=== PATIENT | male | born 1940 | race African-American/Black ===

== ENCOUNTER 2019-01-22 01:48 | Inpatient (IN) | payer MEDICARE, OTHER ==
[~2019-01-22] VITALS: Ht 175.3 cm; Wt 52.1 kg
[2019-01-22] VITALS (9 sets, daily range): BP systolic 112–127; BP diastolic 52–76; PULSE 68–141; RESP 16–18; Ht 175.3 cm; Wt 52.1 kg
[~2019-01-22 01:48] MED LIST: [UNRECOGNIZED DRUG - REMARK]
--- NOTE | 2019-01-22 02:11 | ERD ---
ER Documentation Chief Complaint Chief Complaint HPI 78-year-old male brought in by EMS from home for decreased mental status after h is first night of using trazodone to help him sleep. Patient has had recent insomnia but also has a history of recent lung carcinoma and began chemotherapy about 2 weeks ago. Patient has multiple medical conditions including lung cancer with effusion and recent Pleurx catheter placement, bedbound state, end- stage kidney disease hemodialysis dependent Fridays. Patient has had multiple recent admissions to different hospitals and is constantly being discharged but his cannot take care of him at home any longer. The HPI was supplemented by daughter who was at the bedside states his can no longer take care of him. He has had trouble sleeping recently and was presc ribed trazodone and it was his first night using it and family became worried because of his diminished mental status. He has had no fevers, no vomiting, no complaints of chest pain. ROS All systems reviewed and are negative except as per history of present illness. Medications Home Meds Reported Medications [Med Lists Not ] No Conflict Check 04/29/11 Allergies Allergies: Coded Allergies: No Known Drug Allergy (Verified Allergy, Unknown, 05/05/11) PMhx/Soc End-stage kidney disease hemodialysis dependent, atrial fibrillation, portacatheter to the right chest, Pleurx catheter to the right lateral chest, recent right shoulder chip fracture from fall, bedbound state, COPD, CHF, lung carcinoma, hypertension, history of bilateral pulmonary embolisms, DVT, inferior vena cava filter, gout, hypothyroidism, anemia, depression, history of [place], GERD, history of GI bleed History of Surgery: No Anesthesia Reaction: No Hx Neurological Disorder: No Hx Respiratory Disorders: No Hx Cardiac Disorders: Yes (HTN, HYPERLIPIDEMIA) Hx Psychiatric Problems: No Hx Miscellaneous Medical Probl: Yes (4 year h/o dialysis, CHF, Pulmonary edema, Renal failure,atrial fib) FmHx Family History: No diabetes Physical Exam Vitals Vital Signs Date Temp Pulse Resp B/P (MAP) Pulse Ox O2 O2 Flow FiO2 Time Delivery Rate 01/22/19 96 25 100 02:11 Per nurse's records Physical Exam Const: No acute distress, afebrile HEENT: Dry mucous membranes, pupils equal and reactive Resp: Diminished breath sounds bilaterally Cardio: Regular rate and rhythm, no murmurs Abd: Soft, non tender, non distended. Skin: No petechiae or rashes, no lacerations or abrasions noted Back: No midline or flank tenderness Ext: No cyanosis, or edema Neur: Eyes closed, ANO x1, able to answer simple questions, patient has upper and lower extremity contractures Psych: Depressed affect Result Diagram: 01/22/19 0341 01/22/19 0341 Results 24 hrs Laboratory Tests Test 01/22/19 03:41 White Blood Count 7.4 10^3/ul Red Blood Count 2.65 10^6/ul Hemoglobin 8.7 g/dl Hematocrit 27.5 % Mean Corpuscular Volume 103.8 fl Mean Corpuscular Hemoglobin 32.8 pg Mean Corpuscular Hemoglobin Concent 31.6 g/dl Red Cell Distribution Width 18.0 % Platelet Count 182 10^3/UL Mean Platelet Volume 10.0 fl Immature Granulocytes % 0.400 % Neutrophils % 68.9 % Lymphocytes % 16.4 % Monocytes % 13.2 % Eosinophils % 0.4 % Basophils % 0.7 % Nucleated Red Blood Cells % 0.0 /100WBC Immature Granulocytes # 0.030 10^3/ul Neutrophils # 5.1 10^3/ul Lymphocytes # 1.2 10^3/ul Monocytes # 1.0 10^3/ul Eosinophils # 0.0 10^3/ul Basophils # 0.1 10^3/ul Nucleated Red Blood Cells # 0.0 10^3/ul Sodium Level 140 mmol/L Potassium Level 4.1 mmol/L Chloride Level 97 mmol/L Carbon Dioxide Level 31 mmol/L Anion Gap 12 Blood Urea Nitrogen 31 mg/dl Creatinine 5.59 mg/dl Est Glomerular Filtrat Rate mL/min mL/min Glucose Level 127 mg/dl Calcium Level 8.7 mg/dl Total Bilirubin 0.2 mg/dl Direct Bilirubin 0.00 mg/dl Indirect Bilirubin 0.2 mg/dl Aspartate Amino Transf (AST/SGOT) 23 IU/L Alanine Aminotransferase (ALT/SGPT) 17 IU/L Alkaline Phosphatase 133 IU/L Troponin I Pending Total Protein 6.6 g/dl Albumin 3.0 g/dl Globulin 3.60 g/dl Albumin/Globulin Ratio 0.83 Lipase 62 U/L Current Medications Medications Dose Sig/Antonio Start Time Status Last (Trade) Ordered Route PRN Stop Time Admin Dose Reason Admin 1 mg ONCE STAT 01/22/19 DC 01/22/19 Hydromorphone IM 03:00 03:01 HCl 01/22/19 03:01 (Dilaudid) Diltiazem 20 mg ONCE ONCE 01/22/19 DC 01/22/19 HCl IV 04:00 03:47 (Cardizem Iv) 01/22/19 04:01 Procedures/MDM IV line was established patient was placed on monitoring and evaluation advisor rhythm strip revealed a narrow complex tachycardia at 110 bpm with upright P and T waves. Patient was afebrile EKG performed, read by me revealed a atrial fibrillation with rapid ventricular rate at 101 bpm, left axis deviation, narrow QRS complex no concerning ST elevations or depressions noted 1 view chest x-ray performed, read by me there is a catheter in the right chest and complete opacification of the left hemithorax consistent with effusion and lung carcinoma For pain control administered hydromorphone 1 mg IM x1. Patient had an episode of atrial fibrillation at a rate of 160 bpm, I immediately administered diltiazem 20 mg IV x1. EKG after diltiazem therapy revealed an atrial fibrillation rate controlled at 98 bpm, normal axis, narrow QRS complex, no concerning ST elevations or depressions noted CBC reveals anemia with a hemoglobin of 8.7, electrolytes reveal end-stage kidney disease, liver function tests normal, troponin negative Critical Care: Time: 40 minutes, this was time separate from other billable procedures. Treatments/Evaluations: Close monitoring and treatment of unstable vital signs, cardiorespiratory, and neurologic status, while maintaining tight balance of fluid, respiratory, and cardiac interventions. Patient will be admitted to telemetry setting for trazodone overdose and atrial fibrillation with rapid ventricular rate. He will also require inpatient hemodialysis and eventual placement possibly to a snf facility. Departure Diagnosis: Primary Impression: Acute encephalopathy Additional Impressions: Lung cancer Laterality: unspecified laterality Lung location: unspecified part of lung Qualified Codes: C34.90 - Malignant neoplasm of unspecified part of unspecified bronchus or lung End stage kidney disease Overdose Encounter type: initial encounter Injury intent: accidental or unintentional Qualified Codes: T50.901A - Poisoning by unspecified drugs, medicaments and biological substances, accidental (unintentional), initial encounter Atrial fibrillation with RVR Anemia Anemia type: unspecified type Qualified Codes: D64.9 - Anemia, unspecified Condition: HOSSEIN Dunaway MD Jan 22, 2019 02:11
[2019-01-22] MEDS ORDERED: HYDROmorphONE 2 MG/ML SYG IM STA (03:00)
[2019-01-22] MEDS ORDERED: DILTIAZEM 25 MG INJ IV ONE (04:00)
[2019-01-22] MEDS ORDERED: DEXTROSE 5%-0.45% NACL 1,000 ML IV SCH (04:48)
--- NOTE | 2019-01-22 04:48 | HP ---
Date/Time of Note Date/Time of Note DATE: 01/22/19 TIME: 04:40 Assessment/Plan VTE Prophylaxis Pharmacological prophylaxis: heparin Lines/Catheters IV Catheter Type (from Nrsg): portacath Assessment/Plan Assessment/Plan 1. 78-year-old male with a history of hypertension, ESRD on HD, bilateral PE status post IVC filter, COPD, GERD, hypothyroidism, recently diagnosed lung cancer on chemo. 1. Altered mentation, bedbound/unable to care for self -Patient with multiple medical condition. Family unable to care for patient. -physician relations manager for placement -need palliative care, hospice discussion 2. Recently diagnosed lung cancer on chemo -talk to family and decide about Oncology consult 3. Atrial fibrillation with RVR: Status post diltiazem ER, currently rate controlled 4. History of bilateral PE: Status post IVC filter 5. ESRD on HD: Nephrology for dialysis 6. History of COPD: Supplemental oxygen, bronchodilators and steroid as needed 7. Hypothyroidism: Continue Synthroid 8. Hypertension: Adjust antihypertensive as needed 9. Normocytic anemia: Likely from chronic disease and the chemo induced -Check FOBT and iron/ferritin to workup for GI bleed and iron deficiency -Transfuse PRBCs as needed Result Diagram: 01/22/19 0341 01/22/19 0341 Results 24hrs Laboratory Tests Test 01/22/19 03:41 White Blood Count 7.4 Red Blood Count 2.65 L Hemoglobin 8.7 L Hematocrit 27.5 L Mean Corpuscular Volume 103.8 H Mean Corpuscular Hemoglobin 32.8 Mean Corpuscular Hemoglobin Concent 31.6 L Red Cell Distribution Width 18.0 H Platelet Count 182 Mean Platelet Volume 10.0 Immature Granulocytes % 0.400 Neutrophils % 68.9 Lymphocytes % 16.4 Monocytes % 13.2 H Eosinophils % 0.4 Basophils % 0.7 Nucleated Red Blood Cells % 0.0 Immature Granulocytes # 0.030 Neutrophils # 5.1 Lymphocytes # 1.2 Monocytes # 1.0 H Eosinophils # 0.0 Basophils # 0.1 Nucleated Red Blood Cells # 0.0 Sodium Level 140 Potassium Level 4.1 Chloride Level 97 Carbon Dioxide Level 31 Anion Gap 12 Blood Urea Nitrogen 31 H Creatinine 5.59 H Est Glomerular Filtrat Rate mL/min Glucose Level 127 Calcium Level 8.7 Total Bilirubin 0.2 Direct Bilirubin 0.00 Indirect Bilirubin 0.2 Aspartate Amino Transf (AST/SGOT) 23 Alanine Aminotransferase (ALT/SGPT) 17 Alkaline Phosphatase 133 H Troponin I 0.056 Total Protein 6.6 Albumin 3.0 L Globulin 3.60 H Albumin/Globulin Ratio 0.83 Lipase 62 HPI/ROS Admit Date/Time Admit Date/Time Hx of Present Illness This is a 78-year-old male with a history of hypertension, ESRD on HD, bilateral PE status post IVC filter, COPD, GERD, hypothyroidism, recently diagnosed lung cancer on chemo. Patient was discharged from [facility] yesterday after he was admitted for right shoulder status post fall. stated that she is unable to care for him as he has been confused, anxious, attempting to pull out his Pleurx (had recently been replaced for dislodgment). Patient was also given trazodone for a sleep that seems to make him more confused. Family requesting placement. PMH/Family/Social Past Medical History Past Surgical History Past Surgical Hx: other (see hpi) Family History Significant Family History: no pertinent family hx Social History Alcohol Use: other Smoking Status: Unknown if ever smoked Drug Use: other Exam Constitutional: other (no acute distress) Eyes: PERRL ENMT: nl external ears & nose Neck: supple Respiratory: normal air movement Cardiovascular: nl pulses Gastrointestinal: soft Extremities: normal pulses Coded Allergies: No Known Drug Allergy (Verified Allergy, Unknown, 05/05/11) Social History Smoking Status: Never smoker Exam/Review of Systems Vital Signs Vitals Vital Signs Date Temp Pulse Resp B/P (MAP) Pulse Ox O2 O2 Flow FiO2 Time Delivery Rate 01/22/19 96 25 100 02:11 Exam Constitutional: other (non-verbal, cachectic) Head: normocephalic, atraumatic Cardiovascular: irregular rhythm Gastrointestinal: soft Musculoskeletal: other (muscle wasting) Neurological: other (non-verbal (not answering questions)) ANKIT BRIZUELA MD Jan 22, 2019 04:48
[2019-01-22] MEDS ORDERED: ONDANSETRON 4 MG INJ IV PRN (05:00)
[2019-01-22] MEDS ORDERED: NACL 0.9% 3 ML SYG IV SCH (05:00)
[2019-01-22] MEDS: morphine 2 MG INJ IV PRN ×2 (08:44→14:30)
--- NOTE | 2019-01-22 10:52 | CONS ---
Assessment/Plan Assessment/Plan Hospital Course (Demo Recall) This is a 78-year-old male with a history of hypertension, ESRD on HD, bilateral PE status post IVC filter, COPD, GERD, hypothyroidism, recently diagnosed lung cancer on chemo. Patient was recently discharged from [facility] after he was admitted for right shoulder status post fall. Family is unable to care for him as he has been confused, anxious, attempting to pull out his Pleurx (had re cently been replaced for dislodgment). Patient was also given trazodone for a sleep that seems to make him more confused. He has a functioning L upper arm AVF. not clear when his last hd was. no fever, chills, new rash, melena, chest pain or dyspnea cxr reviewed ROS All systems reviewed and are negative except as per history of present illness. Allergies Allergies: Coded Allergies: No Known Drug Allergy (Verified Allergy, Unknown, 05/05/11) PMhx/Soc End-stage kidney disease hemodialysis dependent, atrial fibrillation, portacatheter to the right chest, Pleurx catheter to the right lateral chest, recent right shoulder chip fracture from fall, bedbound state, COPD, CHF, lung carcinoma, hypertension, history of bilateral pulmonary embolisms, DVT, inferior vena cava filter, gout, hypothyroidism, anemia, depression, history of [place], GERD, history of GI bleed History of Surgery: No Anesthesia Reaction: No Hx Neurological Disorder: No Hx Respiratory Disorders: No Hx Cardiac Disorders: Yes (HTN, HYPERLIPIDEMIA) Hx Psychiatric Problems: No Hx Miscellaneous Medical Probl: Yes (4 year h/o dialysis, CHF, Pulmonary edema, Renal failure,atrial fib) FmHx Family History: No renal diseases social history: no current alcohol or tobacco Physical Exam Const: No acute distress, afebrile HEENT: Dry mucous membranes, pupils equal and reactive Resp: Diminished breath sounds bilaterally Cardio: Regular rate and rhythm, no murmurs Abd: Soft, non tender, non distended. Skin: No petechiae or rashes, no lacerations or abrasions noted Back: No midline or flank tenderness Ext: No cyanosis, or edema Neur: Eyes closed, ANO x1, able to answer simple questions, patient has upper and lower extremity contractures Psych: Depressed affect 1. 78-year-old male with a history of hypertension, ESRD on HD, bilateral PE status post IVC filter, COPD, GERD, hypothyroidism, recently diagnosed lung cancer on chemo. 1. ESRD: no indication for acute HD. will re-evaluate in am. 2. Recently diagnosed lung cancer on chemo -cxr shows opacification of left hemithorax. ? hospice 3. Atrial fibrillation with RVR: Status post diltiazem ER, currently rate controlled 4. History of bilateral PE: Status post IVC filter 5. Altered mentation, 6. History of COPD: Supplemental oxygen, bronchodilators and steroid as needed 7. Hypothyroidism: Continue Synthroid 8. Hypertension: Adjust antihypertensive as needed 9. Normocytic anemia: Likely from chronic disease and the chemo induced -Check FOBT and iron/ferritin to workup for GI bleed and iron deficiency -Transfuse PRBCs as needed Consultation Date/Type/Reason Admit Date/Time Date/Time of Note DATE: 01/22/19 TIME: 10:46 Past Medical History Home Meds Reported Medications [Med Lists Not ] No Conflict Check 04/29/11 Medications Current Medications IV Flush (NS 3 ml) 3 ml PER PROTOCOL IV ; Start 01/22/19 at 05:00 Ondansetron HCl (Zofran Inj) 4 mg Q6H PRN IV NAUSEA/VOMITING; Start 01/22/19 at 05:00 Morphine Sulfate (morphine) 2 mg Q4H PRN IV .PAIN 7-10 Last administered on 01/22/19at 08:44; Admin Dose 2 MG; Start 01/22/19 at 05:00 Allergies: Coded Allergies: No Known Drug Allergy (Verified Allergy, Unknown, 05/05/11) Social History Smoking Status: Former smoker Exam/Review of Systems Exam Vitals Vital Signs Date Temp Pulse Resp B/P (MAP) Pulse Ox O2 O2 Flow FiO2 Time Delivery Rate 01/22/19 141 08:06 01/22/19 Nasal 2.0 05:35 Cannula 01/22/19 99.5 18 119/56 100 05:26 (77) Results Result Diagram: 01/22/19 0341 01/22/19 0341 Results 24hrs Laboratory Tests Test 01/22/19 03:41 White Blood Count 7.4 Red Blood Count 2.65 L Hemoglobin 8.7 L Hematocrit 27.5 L Mean Corpuscular Volume 103.8 H Mean Corpuscular Hemoglobin 32.8 Mean Corpuscular Hemoglobin Concent 31.6 L Red Cell Distribution Width 18.0 H Platelet Count 182 Mean Platelet Volume 10.0 Immature Granulocytes % 0.400 Neutrophils % 68.9 Lymphocytes % 16.4 Monocytes % 13.2 H Eosinophils % 0.4 Basophils % 0.7 Nucleated Red Blood Cells % 0.0 Immature Granulocytes # 0.030 Neutrophils # 5.1 Lymphocytes # 1.2 Monocytes # 1.0 H Eosinophils # 0.0 Basophils # 0.1 Nucleated Red Blood Cells # 0.0 Sodium Level 140 Potassium Level 4.1 Chloride Level 97 Carbon Dioxide Level 31 Anion Gap 12 Blood Urea Nitrogen 31 H Creatinine 5.59 H Est Glomerular Filtrat Rate mL/min Glucose Level 127 Calcium Level 8.7 Total Bilirubin 0.2 Direct Bilirubin 0.00 Indirect Bilirubin 0.2 Aspartate Amino Transf (AST/SGOT) 23 Alanine Aminotransferase (ALT/SGPT) 17 Alkaline Phosphatase 133 H Troponin I 0.056 Total Protein 6.6 Albumin 3.0 L Globulin 3.60 H Albumin/Globulin Ratio 0.83 Lipase 62 Medications Medication Current Medications IV Flush (NS 3 ml) 3 ml PER PROTOCOL IV ; Start 01/22/19 at 05:00 Ondansetron HCl (Zofran Inj) 4 mg Q6H PRN IV NAUSEA/VOMITING; Start 01/22/19 at 05:00 Morphine Sulfate (morphine) 2 mg Q4H PRN IV .PAIN 7-10 Last administered on 01/22/19at 08:44; Admin Dose 2 MG; Start 01/22/19 at 05:00 STANISLAV CALERO DO Jan 22, 2019 10:52
[2019-01-22] MEDS ORDERED: ENOXAPARIN 100 MG/ML SYG SC SCH ×2 (11:30→12:00)
[2019-01-22] MEDS ORDERED: IPRATROPIUM (NEB) 0.5 MG/2.5 ML AMP HHN PRN (11:30)
[2019-01-22] MEDS: DILTIAZEM 30 MG TAB PO SCH ×2 (12:30→12:35)
--- NOTE | 2019-01-22 15:31 | CONS ---
Assessment/Plan Assessment/Plan Hospital Course (Demo Recall) Assessment: Atrial fibrillation, likely chronic - rapid ventricular rates Hypertension Lung cancer - recent diagnosis and undergoing chemotherapy, has right PleurX catheter, complete opacification of the left hemithorax on chest x-ray End-stage renal disease, on hemodialysis Chronic obstructive pulmonary disease History of bilateral pulmonary embolism, status post IVC filter placement Anemia Recommendations: -increase diltiazem to 60mg PO Q6hr -not a good candidate for anticoagulation -change Lovenox from therapeutic to prophylactic dosing Consultation Date/Type/Reason Admit Date/Time Type of Consult Cardiology Reason for Consultation atrial fibrillation with rapid ventricular response Date/Time of Note DATE: 01/22/19 TIME: 15:23 Hx of Present Illness The patient is a 78 year-old male who presented with confusion and agitation. He is alert and oriented to person only, and is a limited historian. He apparently has a history of atrial fibrillation and has been noted to be in atrial fibrillation with a rapid ventricular response. He was recently diagnosed with lung cancer, and has a right PleurX catheter in place and undergoing chemotherapy. Unable to obtain review of systems due to patient's mental status. Past Medical History Atrial fibrillation Hypertension Lung cancer End-stage renal disease, on hemodialysis Chronic obstructive pulmonary disease History of bilateral pulmonary embolism, status post IVC filter placement Home Meds Reported Medications [Med Lists Not ] No Conflict Check 04/29/11 Medications Current Medications IV Flush (NS 3 ml) 3 ml PER PROTOCOL IV ; Start 01/22/19 at 05:00 Ondansetron HCl (Zofran Inj) 4 mg Q6H PRN IV NAUSEA/VOMITING; Start 01/22/19 at 05:00 Morphine Sulfate (morphine) 2 mg Q4H PRN IV .PAIN 7-10 Last administered on 01/22/19at 14:30; Admin Dose 2 MG; Start 01/22/19 at 05:00 Diltiazem HCl (Cardizem) 30 mg QID PO Last administered on 01/22/19at 12:30; Admin Dose 30 MG; Start 01/22/19 at 11:30 Ipratropium [place] (Atrovent 0.02% (Neb)) 0.5 mg Q4H RESP THERAPY PRN HHN SHORTNESS OF BREATH; Start 01/22/19 at 11:30 Famotidine (Pepcid) 20 mg DAILY PO ; Start 01/23/19 at 09:00 Enoxaparin Sodium (Lovenox) 50 mg Q24H SC Last administered on 01/22/19at 12:10; Admin Dose 50 MG; Start 01/22/19 at 12:00 Allergies: Coded Allergies: No Known Drug Allergy (Verified Allergy, Unknown, 05/05/11) Family History Significant Family History: no pertinent family hx Social History Smoking Status: Former smoker Exam/Review of Systems Vital Signs Vitals Vital Signs Date Temp Pulse Resp B/P (MAP) Pulse Ox O2 O2 Flow FiO2 Time Delivery Rate 01/22/19 92 12:09 01/22/19 98.6 16 112/62 100 11:44 (79) 01/22/19 Nasal 2.0 05:35 Cannula Exam Constitutional: alert; No oriented Psych: no complaints, confusion Head: normocephalic, atraumatic Eyes: nl conjunctiva, nl lids ENMT: nl external ears & nose, nl nasal mucosa & septum Neck: supple, non-tender Respiratory: diminished breath sounds Cardiovascular: irregular rhythm Gastrointestinal: soft, non-tender Musculoskeletal: nl extremities to inspection Extremities: No cyanosis, No clubbing, No edema Neurological: No nl mental status Labs Result Diagram: 01/22/19 0341 01/22/19 0341 Results 24hrs Laboratory Tests Test 01/22/19 03:41 White Blood Count 7.4 Red Blood Count 2.65 L Hemoglobin 8.7 L Hematocrit 27.5 L Mean Corpuscular Volume 103.8 H Mean Corpuscular Hemoglobin 32.8 Mean Corpuscular Hemoglobin Concent 31.6 L Red Cell Distribution Width 18.0 H Platelet Count 182 Mean Platelet Volume 10.0 Immature Granulocytes % 0.400 Neutrophils % 68.9 Lymphocytes % 16.4 Monocytes % 13.2 H Eosinophils % 0.4 Basophils % 0.7 Nucleated Red Blood Cells % 0.0 Immature Granulocytes # 0.030 Neutrophils # 5.1 Lymphocytes # 1.2 Monocytes # 1.0 H Eosinophils # 0.0 Basophils # 0.1 Nucleated Red Blood Cells # 0.0 Sodium Level 140 Potassium Level 4.1 Chloride Level 97 Carbon Dioxide Level 31 Anion Gap 12 Blood Urea Nitrogen 31 H Creatinine 5.59 H Est Glomerular Filtrat Rate mL/min Glucose Level 127 Calcium Level 8.7 Total Bilirubin 0.2 Direct Bilirubin 0.00 Indirect Bilirubin 0.2 Aspartate Amino Transf (AST/SGOT) 23 Alanine Aminotransferase (ALT/SGPT) 17 Alkaline Phosphatase 133 H Troponin I 0.056 Total Protein 6.6 Albumin 3.0 L Globulin 3.60 H Albumin/Globulin Ratio 0.83 Lipase 62 Medications Medications Current Medications IV Flush (NS 3 ml) 3 ml PER PROTOCOL IV ; Start 01/22/19 at 05:00 Ondansetron HCl (Zofran Inj) 4 mg Q6H PRN IV NAUSEA/VOMITING; Start 01/22/19 at 05:00 Morphine Sulfate (morphine) 2 mg Q4H PRN IV .PAIN 7-10 Last administered on 01/22/19at 14:30; Admin Dose 2 MG; Start 01/22/19 at 05:00 Diltiazem HCl (Cardizem) 30 mg QID PO Last administered on 01/22/19at 12:30; Admin Dose 30 MG; Start 01/22/19 at 11:30 Ipratropium [place] (Atrovent 0.02% (Neb)) 0.5 mg Q4H RESP THERAPY PRN HHN SHORTNESS OF BREATH; Start 01/22/19 at 11:30 Famotidine (Pepcid) 20 mg DAILY PO ; Start 01/23/19 at 09:00 Enoxaparin Sodium (Lovenox) 50 mg Q24H SC Last administered on 01/22/19at 12:10; Admin Dose 50 MG; Start 01/22/19 at 12:00 REKHA MCGEE MD Jan 22, 2019 15:31
[2019-01-22] MEDS: DILTIAZEM 60 MG TAB PO SCH (17:15)
--- NOTE | 2019-01-22 17:31 | RADRPT ---
Echocardiogram Report Patient Name: NELLY HAYSPatient ID: [id number] : 1940 (78y 10m)Study Date: 01/22/2019 2:28:55 PM Gender: MAccession #: [id number] Tech: Loulou Pendleton [facility] Location: [facility]- Ref.Physician: ANKIT BRIZUELA Height(Cm): BSA: Weight(Kg): Quality: AdequateAccount #: Procedures: Echocardiographic Report: Transthoracic echocardiogram with complete 2D, M-Mode, and doppler examination. Indications: Atrial Fibrillation. Measurements: 2D/M Mode Doppler Measurement Value Normal Range Measurement Value Normal Range LVIDd 2D 3.7 [ 4.2 - 5.8 ] cm TENZIN VTI 0.8 [ 2.0 - 4.0 ] cm2 LVIDs 2D 2.8 [ 2.5 - 4.0 ] cm AV Mean Dylan 1.7 [ 70.0 - 90.0 ] cm/sec LVPWd 2D 0.9 [ 0.6 - 1.0 ] cm AV Mean PG 13.0 [ 2.0 - 4.0 ] mmHg IVSd 2D 0.9 [ 0.6 - 1.0 ] cm AV Peak Dylan 2.7 [ 100.0 - 170.0 ] cm/sec EDV 2D 58.1 [ 62.0 - 150.0 ] ml AV Peak PG 29.0 [ 2.0 - 9.0 ] mmHg ESV 2D 28.3 [ 21.0 - 61.0 ] ml AV VTI 53.3 cm EF 2D 51.3 [ 52.0 - 72.0 ] percent LVOT Mean Dylan 0.5 [ 60.0 - 80.0 ] cm/sec LVOT Diam 1.9 [ 2.3 - 2.9 ] cm LVOT Mean PG 1.0 [ 1.0 - 3.0 ] mmHg LVOT Peak Dylan 1.0 [ 70.0 - 110.0 ] cm/sec LVOT Peak PG 4.0 [ 2.0 - 6.0 ] mmHg LVOT VTI 15.4 [ 20.0 - 30.0 ] cm TR Peak Dylan 2.8 [ 100.0 - 280.0 ] cm/sec TR Peak PG 31.0 mmHg PV Peak Dylan 1.1 [ 40.0 - 80.0 ] cm/sec PV Peak PG 5.0 mmHg Findings: Left Ventricle: Lower limits of normal systolic function. Normal left ventricular cavity size. Normal left ventricular wall thickness. Ejection fraction is visually estimated at 50-55 %. Right Ventricle: Normal right ventricular size. Normal right ventricular systolic function. Left Atrium: There is mild enlargement of left atrium. Right Atrium: The right atrium is normal in size. Atrial Septum: Normal atrial septum. Ventricular septum: Normal/intact ventricular septum. Mitral Valve: Mitral valve leaflets appear mildly thickened. Trace mitral regurgitation. Aortic Valve: Aortic valve Max velocity 2.55 m/sec. Max PG 26.10 mmHg. Mean PG 11.00 mmHg. Aortic valve area 0.92 cm2. Aortic sclerosis without significant stenosis. Aortic cusps appear mildly calcified. Trace to mild aortic valve regurgitation. Tricuspid Valve: Unable to obtain RVSP due to minimal presence of tricuspid regurgitation. Estimated peak PA systolic pressure 31 mmHg. There is trace to mild tricuspid regurgitation. Pulmonic Valve: Normal pulmonic valve appearance. No evidence of pulmonic regurgitation. Pericardium: Questionable Pleural Effusion. Aorta: Normal aortic root. IVC: Normal size and no respiratory collapse consistent with elevated right atrial pressure. Conclusions: Normal left ventricular cavity size. Normal left ventricular wall thickness. Ejection fraction is visually estimated at 50-55 %. Electronically Signed By: Chano Choi 2019-01-22 17:29:55 PDT
--- NOTE | 2019-01-22 18:55 | PN ---
Date/Time of Note Date/Time of Note DATE: 01/22/19 TIME: 18:51 Assessment/Plan VTE Prophylaxis Risk score (from Nsg)>0 risk: 12 SCD applied (from Ns): Yes SCD contraindicated: low risk/ambulating Pharmacological prophylaxis: LMWH Lines/Catheters IV Catheter Type (from Nrs): Saline Lock Urinary Cath still in place: No Assessment/Plan Hospital Course Assessment and plan 1. Acute encephalopathy delirium, moderately stable, observe. 2. Failure to thrive, may need placement 3. Lung cancer with recent chemo. Functional status concerning. Recommend at least palliative care consult. 4. Past tobacco? 6. Left pleural effusion with Pleurx catheter. Patient attempted to pull it out. Will need further assistance 7. ESRD on dialysis 8. A. fib RVR, mod stable, start rate control, anticoagulation if adherence is not an issue 9. Chronic COPD 10. Generalized anxiety disorder versus adjustment disorder 11. GERD 12. Hypothyroidism 14. History of PE/IVC filter Subjective: Oriented to year 19 but not month. Abd pain with no known agg/ relieving factors. at bedside. States he recently started chemo in [place]. Presently he has functional decline with mobility, muscle loss, agitation, and possibly diminished appetite. I recommended she at least speak with palliative care. Objective A. fib RVR PE No pallor JVD or droop. Some bitemporal wasting Irregular positive murmur no rub no gallop Diminished breath sounds bilaterally no tachypnea at rest Bowel sounds diminished nontender nondistended no RRG Hypotonia some atrophy Result Diagram: 01/22/19 0341 01/22/19 0341 Results 24hrs Laboratory Tests Test 01/22/19 03:41 White Blood Count 7.4 Red Blood Count 2.65 L Hemoglobin 8.7 L Hematocrit 27.5 L Mean Corpuscular Volume 103.8 H Mean Corpuscular Hemoglobin 32.8 Mean Corpuscular Hemoglobin Concent 31.6 L Red Cell Distribution Width 18.0 H Platelet Count 182 Mean Platelet Volume 10.0 Immature Granulocytes % 0.400 Neutrophils % 68.9 Lymphocytes % 16.4 Monocytes % 13.2 H Eosinophils % 0.4 Basophils % 0.7 Nucleated Red Blood Cells % 0.0 Immature Granulocytes # 0.030 Neutrophils # 5.1 Lymphocytes # 1.2 Monocytes # 1.0 H Eosinophils # 0.0 Basophils # 0.1 Nucleated Red Blood Cells # 0.0 Sodium Level 140 Potassium Level 4.1 Chloride Level 97 Carbon Dioxide Level 31 Anion Gap 12 Blood Urea Nitrogen 31 H Creatinine 5.59 H Est Glomerular Filtrat Rate mL/min Glucose Level 127 Calcium Level 8.7 Total Bilirubin 0.2 Direct Bilirubin 0.00 Indirect Bilirubin 0.2 Aspartate Amino Transf (AST/SGOT) 23 Alanine Aminotransferase (ALT/SGPT) 17 Alkaline Phosphatase 133 H Troponin I 0.056 Total Protein 6.6 Albumin 3.0 L Globulin 3.60 H Albumin/Globulin Ratio 0.83 Lipase 62 Exam/Review of Systems Exam Vitals Vital Signs Date Temp Pulse Resp B/P (MAP) Pulse Ox O2 O2 Flow FiO2 Time Delivery Rate 01/22/19 93 21 16:58 01/22/19 76 16:16 01/22/19 98.3 16 127/76 15:26 (93) 01/22/19 Nasal 2.0 05:35 Cannula Results Results 24hrs Laboratory Tests Test 01/22/19 03:41 White Blood Count 7.4 Red Blood Count 2.65 L Hemoglobin 8.7 L Hematocrit 27.5 L Mean Corpuscular Volume 103.8 H Mean Corpuscular Hemoglobin 32.8 Mean Corpuscular Hemoglobin Concent 31.6 L Red Cell Distribution Width 18.0 H Platelet Count 182 Mean Platelet Volume 10.0 Immature Granulocytes % 0.400 Neutrophils % 68.9 Lymphocytes % 16.4 Monocytes % 13.2 H Eosinophils % 0.4 Basophils % 0.7 Nucleated Red Blood Cells % 0.0 Immature Granulocytes # 0.030 Neutrophils # 5.1 Lymphocytes # 1.2 Monocytes # 1.0 H Eosinophils # 0.0 Basophils # 0.1 Nucleated Red Blood Cells # 0.0 Sodium Level 140 Potassium Level 4.1 Chloride Level 97 Carbon Dioxide Level 31 Anion Gap 12 Blood Urea Nitrogen 31 H Creatinine 5.59 H Est Glomerular Filtrat Rate mL/min Glucose Level 127 Calcium Level 8.7 Total Bilirubin 0.2 Direct Bilirubin 0.00 Indirect Bilirubin 0.2 Aspartate Amino Transf (AST/SGOT) 23 Alanine Aminotransferase (ALT/SGPT) 17 Alkaline Phosphatase 133 H Troponin I 0.056 Total Protein 6.6 Albumin 3.0 L Globulin 3.60 H Albumin/Globulin Ratio 0.83 Lipase 62 Medications Medication Current Medications IV Flush (NS 3 ml) 3 ml PER PROTOCOL IV ; Start 01/22/19 at 05:00 Ondansetron HCl (Zofran Inj) 4 mg Q6H PRN IV NAUSEA/VOMITING; Start 01/22/19 at 05:00 Morphine Sulfate (morphine) 2 mg Q4H PRN IV .PAIN 7-10 Last administered on 01/22/19at 14:30; Admin Dose 2 MG; Start 01/22/19 at 05:00 Ipratropium [place] (Atrovent 0.02% (Neb)) 0.5 mg Q4H RESP THERAPY PRN HHN SHORTNESS OF BREATH; Start 01/22/19 at 11:30 Famotidine (Pepcid) 20 mg DAILY PO ; Start 01/23/19 at 09:00 Diltiazem HCl (Cardizem) 60 mg Q6 PO Last administered on 01/22/19at 17:15; Admin Dose 60 MG; Start 01/22/19 at 18:00 Heparin Sodium (Porcine) (Heparin (5000 Units/1ml)) 5,000 unit Q12 SC ; Start 01/22/19 at 21:00 GURDEEP DIGGS MD Jan 22, 2019 18:55
[2019-01-22] MEDS ORDERED: CARV25TA79 PO (21:57)
[2019-01-22] MEDS ORDERED: LEVO25TA6 PO (21:57)
[2019-01-22] MEDS ORDERED: CLON0.3T PO (21:57)
[2019-01-22] MEDS ORDERED: AMLO2.5T78 PO (21:57)
[2019-01-22] MEDS: LACTOBACILLUS RHAMNOSUS CAP PO SCH (22:04)
[2019-01-22] MEDS: HEPARIN 5,000 UNIT/1 ML VIAL SC SCH (22:13)
[2019-01-23] VITALS (27 sets, daily range): BP systolic 112–165; BP diastolic 56–102; PULSE 61–96; RESP 17–20
[2019-01-23] MEDS: DILTIAZEM 60 MG TAB PO SCH ×4 (01:01→18:00)
[2019-01-23] MEDS: IPRATROPIUM (NEB) 0.5 MG/2.5 ML AMP HHN SCH ×2 (08:00)
--- NOTE | 2019-01-23 08:33 | PN ---
DATE: 01/23/2019 SUBJECTIVE: The patient is stable, no events overnight. OBJECTIVE: VITAL SIGNS: Blood pressure is 114/58, pulse 68, respirations 17, temperature is 97.6. HEENT: Head is normocephalic. NECK: Supple. HEART: Regular rate. LUNGS: Show diminished breath sounds at the base. ABDOMEN: Soft, nontender to palpation without rebound or guarding. EXTREMITIES: Negative for clubbing, cyanosis, no edema. DERMATOLOGIC: No rashes. MUSCULOSKELETAL: No joint effusion. NEUROLOGIC: No change in exam. MEDICATIONS: Reviewed. LABORATORY DATA: Reviewed. ASSESSMENT AND PLAN: 1. End-stage renal disease. Plan is for hemodialysis today. We will dialyze for 3 hours 3k bath, c alcium 2.5. 2. Anemia. Continue to monitor hemoglobin and hematocrit levels. 3. Mineral bone disorder, monitor calcium and phosphorus levels. 4. Acute encephalopathy, etiology is possibly toxic metabolic. Continue to monitor. 5. Chronic obstructive pulmonary disease exacerbation. Continue medical management. Continue bronc hodilators, steroids and oxygen. 6. Hypothyroidism. Continue Synthroid. 7. History of pulmonary embolism, status post inferior vena cava filter. 8. History of lung cancer. Continue medical management. Continue chemotherapy per oncology. Dictated By: YUE TAPIA DO NR/NTS Conf#: [id number] DID#: [id number] CC: ANKIT BRIZUELA MD; GURDEEP DIGGS MD;*EndCC*
[2019-01-23] MEDS: SENNA/DOCUSATE NA (8.6MG/50MG) TAB PO SCH (08:35)
[2019-01-23] MEDS: FAMOTIDINE 20 MG TAB PO SCH (08:35)
[2019-01-23] MEDS: LACTOBACILLUS RHAMNOSUS CAP PO SCH ×2 (08:35→20:39)
[2019-01-23] MEDS: HEPARIN 5,000 UNIT/1 ML VIAL SC SCH ×2 (08:48→20:49)
[2019-01-23] MEDS ORDERED: DILT180C72 PO (09:16)
--- NOTE | 2019-01-23 09:17 | PDOCDIS ---
Discharge Instructions CONDITION [id number] Patient Condition: [id number] Good HOME CARE INSTRUCTIONS: [id number] Diet Instructions: [id number] FOLLOW UP/APPOINTMENTS Follow-up Plan pcp 1 week Cardiology 1 week Oncology 1 week ABDIRASHID RUELAS MD Jan 23, 2019 09:17
--- NOTE | 2019-01-23 11:04 | DS ---
DATE OF ADMISSION: 01/22/2019 DATE OF DISCHARGE: 01/23/2019 DISCHARGE DIAGNOSES: 1. Atrial fibrillation with rapid ventricular response, rate controlled. 2. Altered mental status, resolved. 3. Recently diagnosed lung cancer, undergoing chemotherapy. 4. Recurrent pleural effusion, status post placement. 5. End-stage renal disease on hemodialysis. 6. History of chronic obstructive pulmonary disease. 7. Hypothyroidism. 8. Hypertension. 9. Anemia of chronic disease. 10. Malnutrition of moderate degree. HOSPITAL COURSE: A 78-year-old male with multiple other medical problems, presented to emergency [facility] with altered mental status, and generalized weakness. The patient was diagnosed with rapid atrial fibrillation. He was seen in consultation by fiberglass insulation installer following admission. A 2D echo showed EF of 50% to 55%. His heart rate was well controlled with oral diltiazem. The patient was alert and or iented at the time of my visit. He appeared very comfortable with no evidence of respiratory distres s. The patient is in a stable condition for discharge. I left a message for his . Home health nurse was requested. MEDICATIONS ON DISCHARGE: 1. Coreg 25 mg b.i.d. 2. Cardizem-CD 180 mg daily. 3. Levothyroxine 25 mcg daily. PLAN: 1. Home health nurse visit. 2. Follow up with PCP in 1 week. 3. Follow up with cardiology in 1 week. 4. Follow up with oncology in 1 week. Dictated By: ABDIRASHID WALLIS/NTS Conf#: [id number] DID#: [id number] CC: ANKIT BRIZUELA MD; GURDEEP DIGGS MD;*EndCC*
[2019-01-23] MEDS ORDERED: LORAZEPAM 2 MG INJ IV ONE ×2 (11:30→16:30)
[2019-01-23] MEDS ORDERED: ENOXAPARIN 100 MG/ML SYG SC SCH (12:00)
--- NOTE | 2019-01-23 13:54 | CONS ---
Assessment/Plan Assessment/Plan Assessment/Plan (Daily) Lung cancer rapid decline after one bout of chemotherapy Patient unable to tolerate any further chemotherapy and he is altered baseline dementia and delirium Deconditioning A little bit to be done for his advanced conditioning Wasting syndrome History of COPD History of gastrointestinal reflux disease Been trying to get in touch with family member patient's to number so far cannot contact her. Agree the patient is appropriate for hospice care at this point whether not he will qualify for inpatient hospice is unclear at this point although I think he is very labile with accurate treatment of his respiratory symptoms he may qualify. Suggest hospice consultation in house once family aida hoffmann proves. Consultation Date/Type/Reason Admit Date/Time Date/Time of Note DATE: 01/23/19 TIME: 13:49 Hx of Present Illness All information taken from patient's medical records he is a non-historian. Patient is a 78-year-old gentleman who is a non-historian who has a history of end-stage renal disease on hemodialysis who has been deteriorating with comorbid medical problems including COPD GERD hypothyroidism she did not tolerate chemotherapy therapy as patient became confused anxious as he is presently with through my examination. There is a question whether not he may have some event of drug induced delirium however. However I was called to see patient as he appears to be deteriorating rapidly unable to care for himself history of atrial fibrillation with RVR deconditioning, palliative performance scale of 1 clinically. We have an incomplete database and so far is patient's past medical workup. Patient does not seem to be any obvious severe distress but is grossly confused. Patient's Erma first #[phone] second #[id number]. She does appear to be in some distress at this time moaning and groaning. Incomplete database except patient has a history of lung cancer recently diagnosed status post chemotherapy, rapid compensation with mental status changes and delirium. Past Medical History Medical History: cancer, GERD Home Meds Active Scripts Diltiazem Hcl* (Cardizem CD*) 180 Mg Cap.sr.24h, 180 MG PO DAILY for 30 Days, #30 CAP Prov:ABDIRASHID RUELAS MD 01/23/19 Reported Medications Clonidine Hcl* (Clonidine Hcl*) 0.3 Mg Tablet, 0.3 MG PO Q6H PRN for AGITATION, TAB 01/22/19 Levothyroxine Sodium* (Levothyroxine Sodium*) 25 Mcg Tablet, 25 MCG PO BEFORE BREAKFAST, #30 TAB 01/22/19 Carvedilol* (Carvedilol*) 25 Mg Tablet, 25 MG PO BID, #60 TAB 01/22/19 [Med Lists Not ] No Conflict Check 04/29/11 Discontinued Reported Medications Amlodipine Besylate* (Amlodipine Besylate*) 2.5 Mg Tablet, 5 MG PO DAILY, #30 TAB 01/22/19 Medications Current Medications IV Flush (NS 3 ml) 3 ml PER PROTOCOL IV ; Start 01/22/19 at 05:00 Ondansetron HCl (Zofran Inj) 4 mg Q6H PRN IV NAUSEA/VOMITING; Start 01/22/19 at 05:00 Morphine Sulfate (morphine) 2 mg Q4H PRN IV .PAIN 7-10 Last administered on 01/22/19at 14:30; Admin Dose 2 MG; Start 01/22/19 at 05:00 Ipratropium [place] (Atrovent 0.02% (Neb)) 0.5 mg Q4H RESP THERAPY PRN HHN SHORTNESS OF BREATH; Start 01/22/19 at 11:30 Famotidine (Pepcid) 20 mg DAILY PO Last administered on 01/23/19at 08:35; Admin Dose 20 MG; Start 01/23/19 at 09:00 Diltiazem HCl (Cardizem) 60 mg Q6 PO Last administered on 01/23/19at 06:23; Admin Dose 60 MG; Start 01/22/19 at 18:00 Heparin Sodium (Porcine) (Heparin (5000 Units/1ml)) 5,000 unit Q12 SC Last administered on 01/23/19at 08:48; Admin Dose 5,000 UNIT; Start 01/22/19 at 21:00 Senna/Docusate Sodium (Senokot-S) 2 tab AM PO Last administered on 01/23/19at 08:35; Admin Dose 2 TAB; Start 01/23/19 at 09:00 Lactobacillus Acidophilus/ Rhamnosus (Culturelle) 1 cap BID PO Last administered on 01/23/19at 08:35; Admin Dose 1 CAP; Start 01/22/19 at 21:00 Ipratropium [place] (Atrovent 0.02% (Neb)) 0.5 mg Q8H RESP THERAPY HHN ; Start 01/23/19 at 00:00 Allergies: Coded Allergies: No Known Drug Allergy (Verified Allergy, Unknown, 05/05/11) Social History Smoking Status: Former smoker Exam/Review of Systems Exam Vitals Vital Signs Date Temp Pulse Resp B/P (MAP) Pulse Ox O2 O2 Flow FiO2 Time Delivery Rate 01/23/19 122/59 99 Nasal 2.0 12:38 (80) Cannula 01/23/19 63 12:32 01/23/19 18 11:34 01/23/19 97.6 07:10 01/22/19 21 16:58 Intake and Output 01/22/19 01/22/19 01/23/19 1515:00 23:00 07:00 IntakeIntake Total 450 ml OutputOutput Total 300 ml BalanceBalance 150 ml Constitutional: distress, frail, other (Emaciated appearing) Head: normocephalic, atraumatic; No lacerations, No hematomas, No other ENMT: nl external ears & nose, nl lips & teeth, nl nasal mucosa & septum Neck: supple, non-tender Respiratory: labored breathing, other (Decreased breath sounds throughout both lung lobato and across her retraction without rales rhonchi wheezing or rubs) Cardiovascular: regular rate and rhythm, nl pulses; No bruits, No diastolic murmur, No edema, No gallop, No irregular rhythm, No jugular venous distention (JVD), No murmurs/extra sounds, No rub, No systolic murmur, No S3, No S4, No other Gastrointestinal: bowel sounds, other (Normal active bowel sounds without organomegaly masses tenderness rebound patient is striking at me unable to do an evaluation thoroughly.) Neurological: confused Results Result Diagram: 01/23/19 0530 01/23/19 0530 Results 24hrs Laboratory Tests Test 01/23/19 05:23 01/23/19 05:30 Hepatitis B Surface Antigen NEGATIVE White Blood Count 5.5 # Red Blood Count 2.54 L Hemoglobin 8.5 L Hematocrit 27.0 L Mean Corpuscular Volume 106.3 H Mean Corpuscular Hemoglobin 33.5 H Mean Corpuscular Hemoglobin Concent 31.5 L Red Cell Distribution Width 17.8 H Platelet Count 181 Mean Platelet Volume 10.5 H Immature Granulocytes % 0.400 Neutrophils % 62.0 Lymphocytes % 23.1 Monocytes % 12.5 H Eosinophils % 0.9 Basophils % 1.1 Nucleated Red Blood Cells % 0.0 Immature Granulocytes # 0.020 Neutrophils # 3.4 Lymphocytes # 1.3 Monocytes # 0.7 Eosinophils # 0.1 Basophils # 0.1 Nucleated Red Blood Cells # 0.0 Sodium Level 138 Potassium Level 4.6 Chloride Level 93 L Carbon Dioxide Level 30 Anion Gap 15 H Blood Urea Nitrogen 37 H Creatinine 6.40 H Est Glomerular Filtrat Rate mL/min Glucose Level 100 Hemoglobin A1c 4.9 Calcium Level 8.7 Phosphorus Level 5.7 H Magnesium Level 1.8 Total Bilirubin 0.2 Direct Bilirubin 0.00 Indirect Bilirubin 0.2 Aspartate Amino Transf (AST/SGOT) 25 Alanine Aminotransferase (ALT/SGPT) 13 Alkaline Phosphatase 119 Total Protein 6.7 Albumin 3.0 L Globulin 3.70 H Albumin/Globulin Ratio 0.81 Prealbumin 10.6 L Triglycerides Level 107 Cholesterol Level 129 LDL Cholesterol, Calculated 80 HDL Cholesterol 28 L Cholesterol/HDL Ratio 4.6 Vitamin B12 Level 381 Folate 6.7 Thyroid Stimulating Hormone (TSH) 3.990 Medications Medication Current Medications IV Flush (NS 3 ml) 3 ml PER PROTOCOL IV ; Start 01/22/19 at 05:00 Ondansetron HCl (Zofran Inj) 4 mg Q6H PRN IV NAUSEA/VOMITING; Start 01/22/19 at 05:00 Morphine Sulfate (morphine) 2 mg Q4H PRN IV .PAIN 7-10 Last administered on 01/22/19at 14:30; Admin Dose 2 MG; Start 01/22/19 at 05:00 Ipratropium [place] (Atrovent 0.02% (Neb)) 0.5 mg Q4H RESP THERAPY PRN HHN SHORTNESS OF BREATH; Start 01/22/19 at 11:30 Famotidine (Pepcid) 20 mg DAILY PO Last administered on 01/23/19at 08:35; Admin Dose 20 MG; Start 01/23/19 at 09:00 Diltiazem HCl (Cardizem) 60 mg Q6 PO Last administered on 01/23/19at 06:23; Admin Dose 60 MG; Start 01/22/19 at 18:00 Heparin Sodium (Porcine) (Heparin (5000 Units/1ml)) 5,000 unit Q12 SC Last administered on 01/23/19at 08:48; Admin Dose 5,000 UNIT; Start 01/22/19 at 21:00 Senna/Docusate Sodium (Senokot-S) 2 tab AM PO Last administered on 01/23/19at 08:35; Admin Dose 2 TAB; Start 01/23/19 at 09:00 Lactobacillus Acidophilus/ Rhamnosus (Culturelle) 1 cap BID PO Last administered on 01/23/19at 08:35; Admin Dose 1 CAP; Start 01/22/19 at 21:00 Ipratropium [place] (Atrovent 0.02% (Neb)) 0.5 mg Q8H RESP THERAPY HHN ; Start 01/23/19 at 00:00 FEDERICO COSBY Jan 23, 2019 13:54
--- NOTE | 2019-01-23 14:56 | RADRPT ---
Vent Rate: 110 bpm RR Interval: 0 msec AR Interval: 0 msec QRS Duration: 72 msec QT Interval: 346 msec QTC Interval: 468 msec P-R-T [place]: 0 - 2 - 2 degrees Atrial fibrillation with rapid ventricular response with premature ventricular or aberrantly conducted complexes Low voltage QRS Nonspecific ST and T wave abnormality , probably digitalis effect Abnormal ECG Electronically Signed By: Gurwinder Arthur
--- NOTE | 2019-01-23 15:46 | CONS ---
Assessment/Plan Assessment/Plan Hospital Course (Demo Recall) Assessment: Atrial fibrillation, likely chronic - now rate controlled Hypertension Lung cancer - recent diagnosis and undergoing chemotherapy, has right PleurX catheter, complete opacification of the left hemithorax on chest x-ray End-stage renal disease, on hemodialysis Chronic obstructive pulmonary disease History of bilateral pulmonary embolism, status post IVC filter placement Anemia Recommendations: -continue diltiazem 60mg PO Q6hr -not a good candidate for anticoagulation -follow up hospice evaluation Consultation Date/Type/Reason Admit Date/Time Jan 22, 2019 at 03:59 Initial Consult Date Type of Consult Cardiology Date/Time of Note DATE: 01/23/19 TIME: 15:44 24 HR Interval Summary Free Text/Dictation No acute events. Heart rates controlled. Getting hemodialysis. Detailed Summary Additional Comments Unable to obtain review of systems due to patient's mental status. Exam/Review of Systems Vital Signs Vitals Vital Signs Date Temp Pulse Resp B/P (MAP) Pulse Ox O2 O2 Flow FiO2 Time Delivery Rate 01/23/19 97.8 67 18 121/58 98 Room Air 15:00 (79) 01/23/19 2.0 12:38 01/22/19 21 16:58 Intake and Output 01/22/19 01/22/19 01/23/19 1515:00 23:00 07:00 IntakeIntake Total 450 ml OutputOutput Total 300 ml BalanceBalance 150 ml Exam Exam Constitutional: alert; No oriented Psych: no complaints, confusion Head: normocephalic, atraumatic Eyes: nl conjunctiva, nl lids ENMT: nl external ears & nose, nl nasal mucosa & septum Neck: supple, non-tender Respiratory: diminished breath sounds Cardiovascular: irregular rhythm Gastrointestinal: soft, non-tender Musculoskeletal: nl extremities to inspection Extremities: No cyanosis, No clubbing, No edema Neurological: No nl mental status Labs Result Diagram: 01/23/19 0530 01/23/19 0530 Results 24hrs Laboratory Tests Test 01/23/19 05:23 01/23/19 05:30 Hepatitis B Surface Antigen NEGATIVE White Blood Count 5.5 # Red Blood Count 2.54 L Hemoglobin 8.5 L Hematocrit 27.0 L Mean Corpuscular Volume 106.3 H Mean Corpuscular Hemoglobin 33.5 H Mean Corpuscular Hemoglobin Concent 31.5 L Red Cell Distribution Width 17.8 H Platelet Count 181 Mean Platelet Volume 10.5 H Immature Granulocytes % 0.400 Neutrophils % 62.0 Lymphocytes % 23.1 Monocytes % 12.5 H Eosinophils % 0.9 Basophils % 1.1 Nucleated Red Blood Cells % 0.0 Immature Granulocytes # 0.020 Neutrophils # 3.4 Lymphocytes # 1.3 Monocytes # 0.7 Eosinophils # 0.1 Basophils # 0.1 Nucleated Red Blood Cells # 0.0 Sodium Level 138 Potassium Level 4.6 Chloride Level 93 L Carbon Dioxide Level 30 Anion Gap 15 H Blood Urea Nitrogen 37 H Creatinine 6.40 H Est Glomerular Filtrat Rate mL/min Glucose Level 100 Hemoglobin A1c 4.9 Calcium Level 8.7 Phosphorus Level 5.7 H Magnesium Level 1.8 Total Bilirubin 0.2 Direct Bilirubin 0.00 Indirect Bilirubin 0.2 Aspartate Amino Transf (AST/SGOT) 25 Alanine Aminotransferase (ALT/SGPT) 13 Alkaline Phosphatase 119 Total Protein 6.7 Albumin 3.0 L Globulin 3.70 H Albumin/Globulin Ratio 0.81 Prealbumin 10.6 L Triglycerides Level 107 Cholesterol Level 129 LDL Cholesterol, Calculated 80 HDL Cholesterol 28 L Cholesterol/HDL Ratio 4.6 Vitamin B12 Level 381 Folate 6.7 Thyroid Stimulating Hormone (TSH) 3.990 Medications Medications Current Medications IV Flush (NS 3 ml) 3 ml PER PROTOCOL IV ; Start 01/22/19 at 05:00 Ondansetron HCl (Zofran Inj) 4 mg Q6H PRN IV NAUSEA/VOMITING; Start 01/22/19 at 05:00 Morphine Sulfate (morphine) 2 mg Q4H PRN IV .PAIN 7-10 Last administered on 01/22/19at 14:30; Admin Dose 2 MG; Start 01/22/19 at 05:00 Ipratropium [place] (Atrovent 0.02% (Neb)) 0.5 mg Q4H RESP THERAPY PRN HHN SHORTNESS OF BREATH; Start 01/22/19 at 11:30 Famotidine (Pepcid) 20 mg DAILY PO Last administered on 01/23/19at 08:35; Admin Dose 20 MG; Start 01/23/19 at 09:00 Diltiazem HCl (Cardizem) 60 mg Q6 PO Last administered on 01/23/19at 06:23; Admin Dose 60 MG; Start 01/22/19 at 18:00 Heparin Sodium (Porcine) (Heparin (5000 Units/1ml)) 5,000 unit Q12 SC Last a dministered on 01/23/19 08:48; Admin Dose 5,000 UNIT; Start 01/22/19 at 21:00 Senna/Docusate Sodium (Senokot-S) 2 tab AM PO Last administered on 01/23/19at 08:35; Admin Dose 2 TAB; Start 01/23/19 at 09:00 Lactobacillus Acidophilus/ Rhamnosus (Culturelle) 1 cap BID PO Last administered on 01/23/19at 08:35; Admin Dose 1 CAP; Start 01/22/19 at 21:00 Ipratropium [place] (Atrovent 0.02% (Neb)) 0.5 mg Q8H RESP THERAPY N ; Start 01/23/19 at 00:00 REKHA MCGEE MD Jan 23, 2019 15:46
--- NOTE | 2019-01-23 20:50 | CONS ---
Assessment/Plan Assessment/Plan Assessment/Plan (Daily) Called both numbers for patients contact elie... No answer on either numbers....2100 Consultation Date/Type/Reason Admit Date/Time Jan 22, 2019 at 03:59 Initial Consult Date Date/Time of Note DATE: 01/23/19 TIME: 20:48 Exam/Review of Systems Exam Vitals Vital Signs Date Temp Pulse Resp B/P (MAP) Pulse Ox O2 O2 Flow FiO2 Time Delivery Rate 01/23/19 97.4 89 18 152/81 20:05 (104) 01/23/19 Nasal 2.0 19:52 Cannula 01/23/19 99 18:01 01/22/19 21 16:58 Intake and Output 01/22/19 01/22/19 01/23/19 1515:00 23:00 07:00 IntakeIntake Total 450 ml OutputOutput Total 300 ml BalanceBalance 150 ml Results Result Diagram: 01/23/19 0530 01/23/19 0530 Results 24hrs Laboratory Tests Test 01/23/19 05:23 01/23/19 05:30 Hepatitis B Surface Antigen NEGATIVE White Blood Count 5.5 # Red Blood Count 2.54 L Hemoglobin 8.5 L Hematocrit 27.0 L Mean Corpuscular Volume 106.3 H Mean Corpuscular Hemoglobin 33.5 H Mean Corpuscular Hemoglobin Concent 31.5 L Red Cell Distribution Width 17.8 H Platelet Count 181 Mean Platelet Volume 10.5 H Immature Granulocytes % 0.400 Neutrophils % 62.0 Lymphocytes % 23.1 Monocytes % 12.5 H Eosinophils % 0.9 Basophils % 1.1 Nucleated Red Blood Cells % 0.0 Immature Granulocytes # 0.020 Neutrophils # 3.4 Lymphocytes # 1.3 Monocytes # 0.7 Eosinophils # 0.1 Basophils # 0.1 Nucleated Red Blood Cells # 0.0 Sodium Level 138 Potassium Level 4.6 Chloride Level 93 L Carbon Dioxide Level 30 Anion Gap 15 H Blood Urea Nitrogen 37 H Creatinine 6.40 H Est Glomerular Filtrat Rate mL/min Glucose Level 100 Hemoglobin A1c 4.9 Calcium Level 8.7 Phosphorus Level 5.7 H Magnesium Level 1.8 Total Bilirubin 0.2 Direct Bilirubin 0.00 Indirect Bilirubin 0.2 Aspartate Amino Transf (AST/SGOT) 25 Alanine Aminotransferase (ALT/SGPT) 13 Alkaline Phosphatase 119 Total Protein 6.7 Albumin 3.0 L Globulin 3.70 H Albumin/Globulin Ratio 0.81 Prealbumin 10.6 L Triglycerides Level 107 Cholesterol Level 129 LDL Cholesterol, Calculated 80 HDL Cholesterol 28 L Cholesterol/HDL Ratio 4.6 Vitamin B12 Level 381 Folate 6.7 Thyroid Stimulating Hormone (TSH) 3.990 Rapid Plasma Reagin NONREACTIVE Medications Medication Current Medications IV Flush (NS 3 ml) 3 ml PER PROTOCOL IV ; Start 01/22/19 at 05:00 Ondansetron HCl (Zofran Inj) 4 mg Q6H PRN IV NAUSEA/VOMITING; Start 01/22/19 at 05:00 Morphine Sulfate (morphine) 2 mg Q4H PRN IV .PAIN 7-10 Last administered on 01/22/19 14:30; Admin Dose 2 MG; Start 01/22/19 at 05:00 Ipratropium [place] (Atrovent 0.02% (Neb)) 0.5 mg Q4H RESP THERAPY PRN HHN SHOR TNESS OF BREATH; Start 01/22/19 at 11:30 Famotidine (Pepcid) 20 mg DAILY PO Last administered on 01/23/19 08:35; Admin Dose 20 MG; Start 01/23/19 at 09:00 Diltiazem HCl (Cardizem) 60 mg Q6 PO Last administered on 01/23/19 06:23; Admin Dose 60 MG; Start 01/22/19 at 18:00 Heparin Sodium (Porcine) (Heparin (5000 Units/1ml)) 5,000 unit Q12 SC Last administered on 01/23/19 08:48; Admin Dose 5,000 UNIT; Start 01/22/19 at 21:00 Senna/Docusate Sodium (Senokot-S) 2 tab AM PO Last administered on 01/23/19 08:35; Admin Dose 2 TAB; Start 01/23/19 at 09:00 Lactobacillus Acidophilus/ Rhamnosus (Culturelle) 1 cap BID PO Last administered on 01/23/19 08:35; Admin Dose 1 CAP; Start 01/22/19 at 21:00 Ipratropium [place] (Atrovent 0.02% (Neb)) 0.5 mg Q8H RESP THERAPY HHN ; Start 01/23/19 at 00:00 FEDERICO COSBY J Jan 23, 2019 20:50
[2019-01-24] VITALS (13 sets, daily range): BP systolic 105–135; BP diastolic 51–75; PULSE 55–120; RESP 16–20
[2019-01-24] MEDS: DILTIAZEM 60 MG TAB PO SCH ×5 (02:45→23:42)
[2019-01-24] MEDS: morphine 2 MG INJ IV PRN (04:00)
[2019-01-24] MEDS: IPRATROPIUM (NEB) 0.5 MG/2.5 ML AMP HHN SCH ×3 (08:45→17:59)
--- NOTE | 2019-01-24 08:45 | PN ---
DATE: 01/24/2019 SUBJECTIVE: The patient had hemodialysis, which was complicated and required multiple communications with the dialysis nurse due to patient's underlying agitation. No other events noted. OBJECTIVE: VITAL SIGNS: Blood pressure is 122/60, respirations 16, pulse 72, temperature 98.5. HEENT: Head is normocephalic. NECK: Supple. HEART: Regular rate. LUNGS: Show diminished breath sounds at the base. ABDOMEN: Soft, nontender to palpation without rebound or guarding. EXTREMITIES: Negative for clubbing, cyanosis. No edema. DERMATOLOGIC: No rashes. MUSCULOSKELETAL: No joint effusion. NEUROLOGIC: No change in exam. MEDICATIONS: Reviewed. LABORATORY DATA: Reviewed. ASSESSMENT AND PLAN: 1. End-stage renal disease. The patient had hemodialysis yesterday, tolerated well. Plan is for di alysis tomorrow. 2. Anemia. Monitor hemoglobin and hematocrit levels. 3. Mineral bone disorder. Monitor calcium and phosphorus levels. 4. Acute encephalopathy. Etiology is toxic metabolic. Continue to monitor. 5. Chronic obstructive pulmonary disease exacerbation. Continue medical management. Continue bronc hodilators, and steroids. 6. Hypothyroidism. Continue Synthroid. 7. History of pulmonary embolism, status post inferior vena cava filter placement. 8. History of lung cancer. Continue medical management. Follow up with oncology. Dictated By: YUE TAPIA DO NR/NTS Conf#: [id number] DID#: [id number] CC: FEDERICO COSBY MD; GURDEEP DIGGS MD; ABDIRASHID RUELAS MD;*EndCC*
[2019-01-24] MEDS: SENNA/DOCUSATE NA (8.6MG/50MG) TAB PO SCH (09:00)
[2019-01-24] MEDS: LACTOBACILLUS RHAMNOSUS CAP PO SCH ×2 (09:00→21:00)
[2019-01-24] MEDS: FAMOTIDINE 20 MG TAB PO SCH (09:00)
[2019-01-24] MEDS: HALOPERIDOL 5 MG INJ IM PRN ×2 (09:35→18:53)
[2019-01-24] MEDS: HEPARIN 5,000 UNIT/1 ML VIAL SC SCH ×2 (09:50→21:23)
--- NOTE | 2019-01-24 10:06 | PN ---
Date/Time of Note Date/Time of Note DATE: 01/24/19 TIME: 10:04 Subjective Patient is alert but disoriented to time and place. He gets agitated at times. No shortness of breath. Objective Vitals Vital Signs Date Temp Pulse Resp B/P (MAP) Pulse Ox O2 O2 Flow FiO2 Time Delivery Rate 01/24/19 96.6 94 18 115/56 100 Room Air 09:43 (75) 01/24/19 21 08:45 01/23/19 2.0 19:52 Intake and Output 01/23/19 01/23/19 01/24/19 1515:00 23:00 07:00 IntakeIntake Total 560 ml OutputOutput Total 4700 ml 200 ml BalanceBalance -4140 ml -200 ml Lungs with diffuse rhonchi Cardiac regular rate and rhythm no murmurs or gallops Abdomen soft nontender nondistended normoactive bowel sounds Extremities no edema Results Result Diagram: 01/23/19 0530 01/23/19 0530 Medications Medications Current Medications IV Flush (NS 3 ml) 3 ml PER PROTOCOL IV ; Start 01/22/19 at 05:00 Ondansetron HCl (Zofran Inj) 4 mg Q6H PRN IV NAUSEA/VOMITING; Start 01/22/19 at 05:00 Morphine Sulfate (morphine) 2 mg Q4H PRN IV .PAIN 7-10 Last administered on 01/24/19at 04:00; Admin Dose 2 MG; Start 01/22/19 at 05:00 Ipratropium [place] (Atrovent 0.02% (Neb)) 0.5 mg Q4H RESP THERAPY PRN HHN SHORTNESS OF BREATH; Start 01/22/19 at 11:30 Famotidine (Pepcid) 20 mg DAILY PO Last administered on 01/23/19at 08:35; Admin Dose 20 MG; Start 01/23/19 at 09:00 Diltiazem HCl (Cardizem) 60 mg Q6 PO Last administered on 01/24/19at 06:38; Admin Dose 60 MG; Start 01/22/19 at 18:00 Heparin Sodium (Porcine) (Heparin (5000 Units/1ml)) 5,000 unit Q12 SC Last administered on 01/24/19at 09:50; Admin Dose 5,000 UNIT; Start 01/22/19 at 21:00 Senna/Docusate Sodium (Senokot-S) 2 tab AM PO Last administered on 01/23/19 08 :35; Admin Dose 2 TAB; Start 01/23/19 at 09:00 Lactobacillus Acidophilus/ Rhamnosus (Culturelle) 1 cap BID PO Last administered on 01/23/19 20:39; Admin Dose 1 CAP; Start 01/22/19 at 21:00 Ipratropium [place] (Atrovent 0.02% (Neb)) 0.5 mg Q8H RESP THERAPY HHN Last administered on 01/24/19 08:45; Admin Dose 0.5 MG; Start 01/23/19 at 00:00 Haloperidol (Haldol) 2 mg Q4H PRN IM AGITATION Last administered on 01/24/19 09:35; Admin Dose 2 MG; Start 01/24/19 at 09:30 VTE Prophylaxis Risk score (from Ns)>0 risk: 6 SCD applied (from [facility] [place]): Yes Lines/Catheters IV Catheter Type: Saline Lock Holly in Place: No Assessment/Plan Assessment/Plan 78-year-old male with rapid atrial fibrillation, rate controlled End-stage lung cancer Recurrent pleural effusions, status post left Pleurx placement Malnutrition of severe degree Altered mental status Very poor prognosis DNR CODE STATUS Continue current therapy Palliative care follow-up Hospice evaluation Plan of care was discussed with his , ErmaABDIRASHID GAMBINO MD Jan 24, 2019 10:06
[2019-01-25] MEDS: IPRATROPIUM (NEB) 0.5 MG/2.5 ML AMP HHN SCH ×2 (00:37→08:09)
[2019-01-25 02:00] VITALS: BP 117/44; PULSE 86; RESP 20
[2019-01-25] MEDS: DILTIAZEM 60 MG TAB PO SCH ×2 (05:34→12:50)
[2019-01-25] MEDS: HALOPERIDOL 5 MG INJ IM PRN (05:34)
[2019-01-25 07:32] VITALS: BP 175/84; PULSE 46; RESP 18
[2019-01-25 08:10] VITALS: BP 125/64; PULSE 89; RESP 18
--- NOTE | 2019-01-25 08:54 | PN ---
DATE: 01/25/2019 SUBJECTIVE: The patient is stable. Patient has been placed on hospice. Off HD OBJECTIVE: VITAL SIGNS: Blood pressure is 125/64, pulse 89, respirations 18, temperature 97.5. HEENT: Head is normocephalic. NECK: Supple. HEART: Regular rate. LUNGS: Show diminished breath sounds at the base. ABDOMEN: Soft, nontender to palpation without rebound or guarding. EXTREMITIES: Negative for clubbing, cyanosis, no edema. DERMATOLOGIC: No rashes. MUSCULOSKELETAL: No joint effusion. NEUROLOGIC: No change in exam. MEDICATIONS: Reviewed. LABORATORY DATA: Reviewed. ASSESSMENT AND PLAN: 1. End-stage renal disease. Pt is now on hospice. Off HD. 2. Anemia. Monitor hemoglobin and hematocrit levels. 3. Mineral bone disorder. Continue to monitor calcium and phosphorus levels. 4. Acute encephalopathy, etiology is toxic metabolic. Continue to monitor. 5. Chronic obstructive pulmonary disease exacerbation. Continue medical management. Continue bronchodilators and steroids. 6. Hypothyroidism. Continue Synthroid. 7. History of pulmonary embolism. 8. History of lung cancer. The patient is receiving chemotherapy. Dispo: Patient is pending hospice evaluation. Will sign off. Dictated By: YUE TAPIA DO NR/NTS Conf#: [id number] DID#: [id number] CC: ABDIRASHID RUELAS MD; FEDERICO COSBY MD;*EndCC* MTDD
[2019-01-25] MEDS: FAMOTIDINE 20 MG TAB PO SCH (09:00)
[2019-01-25] MEDS: HEPARIN 5,000 UNIT/1 ML VIAL SC SCH (09:00)
[2019-01-25] MEDS: SENNA/DOCUSATE NA (8.6MG/50MG) TAB PO SCH (09:00)
[2019-01-25] MEDS: LACTOBACILLUS RHAMNOSUS CAP PO SCH (09:00)
--- NOTE | 2019-01-25 09:48 | PN ---
Date/Time of Note Date/Time of Note DATE: 01/25/19 TIME: 09:45 Subjective Patient is less confused. Patient and family agreed to hospice. Hemodialysis was stopped Objective Vitals Vital Signs Date Temp Pulse Resp B/P (MAP) Pulse Ox O2 O2 Flow FiO2 Time Delivery Rate 01/25/19 97.5 89 18 125/64 95 Nasal 08:10 (84) Cannula 01/25/19 21 08:09 01/23/19 2.0 19:52 Intake and Output 01/24/19 01/24/19 01/25/19 1515:00 23:00 07:00 IntakeIntake Total 140 ml 340 ml OutputOutput Total 50 ml 10 ml BalanceBalance 140 ml 290 ml -10 ml Lungs with bilateral rhonchi Cardiac regular rate and rhythm Abdomen soft nontender normoactive bowel sounds No edema Results Result Diagram: 01/23/1952901/23/19529 Medications Medications Current Medications IV Flush (NS 3 ml) 3 ml PER PROTOCOL IV ; Start 01/22/19 at 05:00 Ondansetron HCl (Zofran Inj) 4 mg Q6H PRN IV NAUSEA/VOMITING; Start 01/22/19 at 05:00 Morphine Sulfate (morphine) 2 mg Q4H PRN IV .PAIN 7-10 Last administered on 01/24/19at 04:00; Admin Dose 2 MG; Start 01/22/19 at 05:00 Ipratropium [place] (Atrovent 0.02% (Neb)) 0.5 mg Q4H RESP THERAPY PRN HHN SHORTNESS OF BREATH; Start 01/22/19 at 11:30 Famotidine (Pepcid) 20 mg DAILY PO Last administered on 01/23/19at 08:35; Admin Dose 20 MG; Start 01/23/19 at 09:00 Diltiazem HCl (Cardizem) 60 mg Q6 PO Last administered on 01/25/19at 05:34; Admin Dose 60 MG; Start 01/22/19 at 18:00 Heparin Sodium (Porcine) (Heparin (5000 Units/1ml)) 5,000 unit Q12 SC Last administered on 01/24/19at 21:23; Admin Dose 5,000 UNIT; Start 01/22/19 at 21:00 Senna/Docusate Sodium (Senokot-S) 2 tab AM PO Last administered on 01/23/19 08:35; Admin Dose 2 TAB; Start 01/23/19 at 09:00 Lactobacillus Acidophilus/ Rhamnosus (Culturelle) 1 cap BID PO Last administered on 01/23/19 20:39; Admin Dose 1 CAP; Start 01/22/19 at 21:00 Ipratropium [place] (Atrovent 0.02% (Neb)) 0.5 mg Q8H RESP THERAPY HHN Last administered on 01/25/19 08:09; Admin Dose 0.5 MG; Start 01/23/19 at 00:00 Haloperidol (Haldol) 2 mg Q4H PRN IM AGITATION Last administered on 01/25/19 05:34; Admin Dose 2 MG; Start 01/24/19 at 09:30 VTE Prophylaxis Risk score (from Nsg)>0 risk: 6 SCD applied (from Ns): Yes Lines/Catheters IV Catheter Type: Saline Lock Central line still needed: No Holly in Place: No Assessment/Plan Assessment/Plan 78-year-old male with end-stage lung cancer Recurrent pleural effusions End-stage renal disease. Hemodialysis has been stopped Chronic atrial fibrillation, rate controlled Encephalopathy Malnutrition of severe degree Comfort care Discharge planning in care of hospice ABDIRASHID RUELAS MD Jan 25, 2019 09:48
--- NOTE | 2019-01-25 10:04 | PDOCDIS ---
Discharge Instructions CONDITION [id number] Patient Condition: [id number] Fair HOME CARE INSTRUCTIONS: [id number] Diet Instructions: [id number] Regular ACTIVITY: [id number] Activity Restrictions: [id number] Slowly Increase Activity FOLLOW UP/APPOINTMENTS Follow-up Plan in care of hospice ABDIRASHID RUELAS MD Jan 25, 2019 10:04
== END 2019-01-25 13:10 | disposition hospice, home (50) | DRG 91 ==
LOC: E/R 01:48 → 6WM 03:59 → 5EC 01-23 21:14
PROVIDERS: ADMIT Internal Medicine; ATTEND Internal Medicine
PROC: 5A1D70Z Performance of Urinary Filtration, Intermittent, Less than 6 Hours Per Day (ICD-10-PCS; 2019-01-23)
PROC: 5A1D70Z Performance of Urinary Filtration, Intermittent, Less than 6 Hours Per Day (ICD-10-PCS; principal; 2019-01-25)
DX: G92 Toxic encephalopathy (principal); N18.6 End stage renal disease; E43 Unspecified severe protein-calorie malnutrition; I13.2 Hypertensive heart and chronic kidney disease with heart failure and with stage 5 chronic kidney disease, or end stage renal disease; J90 Pleural effusion, not elsewhere classified; C34.90 Malignant neoplasm of unspecified part of unspecified bronchus or lung; Z68.1 Body mass index [BMI] 19.9 or less, adult; I48.2 Chronic atrial fibrillation; D64.81 Anemia due to antineoplastic chemotherapy; J44.9 Chronic obstructive pulmonary disease, unspecified; I50.9 Heart failure, unspecified; D63.1 Anemia in chronic kidney disease; T43.215A Adverse effect of selective serotonin and norepinephrine reuptake inhibitors, initial encounter; G47.00 Insomnia, unspecified; M10.9 Gout, unspecified; E03.9 Hypothyroidism, unspecified; F32.9 Major depressive disorder, single episode, unspecified; K21.9 Gastro-esophageal reflux disease without esophagitis; E78.5 Hyperlipidemia, unspecified; R62.7 Adult failure to thrive; D63.8 Anemia in other chronic diseases classified elsewhere; I25.2 Old myocardial infarction; Z99.2 Dependence on renal dialysis; Z95.828 Presence of other vascular implants and grafts; Z86.711 Personal history of pulmonary embolism; Z86.718 Personal history of other venous thrombosis and embolism; Z87.891 Personal history of nicotine dependence; Y92.019 Unspecified place in single-family (private) house as the place of occurrence of the external cause
CPT/HCPCS: 36415; 71045; 80053; 80061; 82607; 82746; 83036; 83690; 83735; 84100; 84134; 84443; 84484; 85025; 86592; 86850; 86900; 86901; 87081; 87340; 90935; 92610; 93005; 93306; 94640; 94664; 96372; 96374; 97162; 97530; J1170; J1630; J1644; J1650; J2060; J2270; J7042